=== PATIENT | male | born 1980 | race Hispanic/Latino ===

== ENCOUNTER 2017-02-17 09:01 | Emergency (ER) | payer OTHER, BC ==
[2017-02-17 09:02] VITALS: BMI 32.3
[2017-02-17 09:14] VITALS: RESP 18; TEMP 98.4
--- NOTE | 2017-02-17 10:30 | ED PDOC ---
Arrival/HPI - General Chief Complaint: Upper Extremity Problem/Injury Time Seen by Provider: 02/17/17 09:25 Historian: Patient - History of Present Illness Narrative History of Present Illness (Text): 02/17/17 10:24 36-year-old male presents today with left arm pain status post injury yesterday. 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 He denies numbness weakness or tingling in the family. No medications have been taken for pain at home. Patient describes the pain as a sharp stabbing pain worse with movement. Time/Duration: Other (1 day) Symptom Onset: Gradual Symptom Course: Worsening Quality: Aching, Stabbing Severity Level: 7 Activities at Onset: Other (training/wrestling) Past Medical History - Provider Review Nursing Documentation Reviewed: Yes - Travel History Have you recently traveled outside [place] w/in the past 3 mons?: No - Infectious Disease Hx of Infectious Diseases: None - Tetanus Immunization Tetanus Immunization: Unknown - Cardiac Hx Hypertension: Yes - Pulmonary Hx Respiratory Disorders: No - Neurological Hx Neurological Disorder: No - HEENT Hx HEENT Disorder: No - Renal Hx Renal Disorder: No - Endocrine/Metabolic Hx Endocrine Disorders: No - Hematological/Oncological Hx Blood Disorders: No - Integumentary Hx Dermatological Disorder: No - Musculoskeletal/Rheumatological Hx Musculoskeletal Disorders: No - Gastrointestinal Hx Gastrointestinal Disorders: No - Genitourinary/Gynecological Hx Genitourinary Disorders: No - Psychiatric Hx Psychophysiologic Disorder: No Hx Substance Use: No - Anesthesia Hx Anesthesia: Yes Hx Anesthesia Reactions: No Hx Malignant Hyperthermia: No Family/Social History - Physician Review Nursing Documentation Reviewed: Yes Family/Social History: Unknown Family HX Smoking Status: Never Smoked Hx Alcohol Use: Yes Hx Substance Use: No Allergies/Home Meds Allergies/Adverse Reactions: Allergies No Known Allergies Allergy (Verified 02/17/17 09:14) Review of Systems - Review of Systems Constitutional: absent: Fatigue, Fevers Respiratory: absent: SOB, Cough Cardiovascular: absent: Chest Pain, Palpitations Gastrointestinal: absent: Abdominal Pain, Nausea, Vomiting Genitourinary Male: absent: Dysuria, Frequency, Hematuria Musculoskeletal: Arthralgias. absent: Back Pain, Neck Pain Skin: absent: Rash, Pruritis Physical Exam Vital Signs Reviewed: Yes Vital Signs Temp Pulse Resp BP Pulse Ox 02/17/17 11:00 76 18 157/94 H 97 02/17/17 09:04 98.4 F 80 18 159/105 H 100 Temperature: Afebrile Blood Pressure: Hypertensive Pulse: Regular Respiratory Rate: Normal Appearance: Positive for: Well-Appearing, Non-Toxic, Comfortable Pain Distress: None Mental Status: Positive for: Alert and Oriented X 3 - Systems Exam Head: Present: Atraumatic Respiratory/Chest: Present: Clear to Auscultation Cardiovascular: Present: Regular Rate and Rhythm Upper Extremity: Present: NORMAL PULSES, Tenderness (left arm; + ttp over elbow , proximal forearm and distal radius; decreased rom of elbow due to pain; sensation and distal pulses intact. cap refill <2. no muscle buldge noted. no deformity ), Neurovascularly Intact, Capillary Refill < 2s. No: Normal ROM, Swelling, Erythema, Deformity Neurological: Present: GCS=15 Skin: Present: Warm, Dry, Normal Color. No: Rashes Psychiatric: Present: Alert, Oriented x 3 Medical Decision Making ED Course and Treatment: 02/17/17 10:27 Patient nontoxic well-appearing in no distress with stable vital signs X-rays of the left forearm, elbow and humerus; no fracture toradol IM gail wrap applied. this is a work related injury; pt states he is to f/u with dr. odalis mullen. i spoke with dr. 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 I discussed all results with patient advised to followup with the orthopedist for the next 2 days. Return if symptoms worsen persist or new symptoms develop Impression: arm pain Motrin every 6 hours as needed for pain Flexeril; 1 tablet every 8 hours as needed for muscle spasms;may cause drowsiness. Rest, ice, compression, elevation Followup with the orthopedist within the next 2 days Followup with primary care physician within the next 2 days Return if any other concerning symptoms develop - RAD Interpretation Radiology Orders: 02/17/17 09:17 ELBOW LEFT 3 VIEWS ROUTINE [RAD] Stat FOREARM LEFT [RAD] Stat 02/17/17 09:19 HUMERUS LEFT [RAD] Stat - Medication Orders Current Medication Orders: Discontinued Medications Ketorolac Tromethamine (Toradol) 60 mg IM STAT STA Stop: 02/17/17 09:26 Last Admin: 02/17/17 09:53 Dose: 60 mg Disposition/Present on Arrival - Present on Arrival Any Indicators Present on Arrival: No History of DVT/PE: No History of Uncontrolled Diabetes: No Urinary Catheter: No History of Decub. Ulcer: No History Surgical Site Infection Following: None - Disposition Have Diagnosis and Disposition been Completed?: Yes Diagnosis: Arm pain Disposition: HOME/ ROUTINE Disposition Time: 11:02 Patient Plan: Discharge Condition: GOOD Discharge Instructions (ExitCare): Arm Pain (ED) Additional Instructions: Motrin every 6 hours as needed for pain Flexeril; 1 tablet every 8 hours as needed for muscle spasms;may cause drowsiness. Rest, ice, compression, elevation Followup with the orthopedist within the next 2 days Followup with primary care physician within the next 2 days Return if any other concerning symptoms develop Prescriptions: Cyclobenzaprine [Cyclobenzaprine HCl] 10 mg PO Q8 #10 tab Ibuprofen [Motrin] 600 mg PO Q6H PRN #20 tab PRN Reason: pain/fever reduction Referrals: Sandoval Mercado MD [Primary Care Provider] - Follow up with primary Sandoval Pepe DO [Staff Provider] - Follow up with primary Forms: WORK NOTE
--- NOTE | 2017-02-17 10:50 | RAD ---
PROCEDURE: Radiographs of the left humerus. HISTORY: pain COMPARISON: None. FINDINGS: BONES: Normal. No fracture or focal lesion. SOFT TISSUES: Normal. OTHER FINDINGS: None. IMPRESSION: Normal radiographs of left humerus.
--- NOTE | 2017-02-17 10:51 | RAD ---
PROCEDURE: Radiographs of the Left Forearm HISTORY: pain COMPARISON: None available. TECHNIQUE: Frontal and lateral views obtained. FINDINGS: BONES: No fracture or destructive lesion. JOINT SPACES: Unremarkable. OTHER FINDINGS: None. IMPRESSION: Unremarkable radiographs of the left forearm.
--- NOTE | 2017-02-17 10:52 | RAD ---
PROCEDURE: Radiographs of the left elbow. HISTORY: Pain COMPARISON: No prior. FINDINGS: BONES: Normal. No fracture. JOINTS: Normal. No osteoarthritis. SOFT TISSUES: Normal. JOINT EFFUSION: None. OTHER FINDINGS: None IMPRESSION: Unremarkable radiographs of the left elbow.
[2017-02-17 11:00] VITALS: BP 157/94; PULSE 76; O2SAT 97
== END 2017-02-17 11:23 | disposition home or self-care (01) ==
LOC: ED 09:01
DX: M79.602 Pain in left arm (principal); I10 Essential (primary) hypertension
CPT/HCPCS: 73060; 73080; 73090; 96372; 99284; J1885

== ENCOUNTER 2017-02-22 12:35 | Day surgery (SDC) | payer OTHER ==
[2017-02-21 14:39] VITALS: BMI 31.4
[2017-02-22 13:09] VITALS: TEMP 98.2
[2017-02-22] MEDS ORDERED: Bupivacaine 0.5% Inj(30mL) ONE (14:57)
[2017-02-22] MEDS ORDERED: Midazolam 2 MG/2 ML VIAL ONE (16:00)
[2017-02-22] MEDS ORDERED: Sevoflurane - Inhalation Anesthetic Liq (250 ml) ONE (16:29)
[2017-02-22] MEDS ORDERED: Propofol 10 mg/ml Inj (20 ML) ONE (16:57)
[2017-02-22] MEDS ORDERED: Rocuronium 10 mg/ml (5 ml) ONE (16:58)
[2017-02-22] MEDS ORDERED: Neostigmine Methylsulfate 3mg/3ml Syringe IV ONE (17:06)
[2017-02-22] MEDS ORDERED: Sodium Chloride 0.9% 1,000 ML IV SCH (17:45)
[2017-02-22] MEDS ORDERED: HYDROmorphone 1 mg/ml ISec ONE ×2 (18:08→18:35)
[2017-02-22] MEDS: HYDROmorphone 1 mg/ml ISec IVP PRN ×2 (18:10→18:21)
[2017-02-22 18:19] VITALS: RESP 16
[2017-02-22] MEDS ORDERED: Oxycodone/Acetaminophen 5/325 mg Tab PO PRN (18:26)
[2017-02-22] MEDS ORDERED: HYDROmorphone 1 mg/ml ISec IVP ONE (18:35)
[2017-02-22 18:40] VITALS: O2SAT 100
[2017-02-22] MEDS ORDERED: Oxycodone/Acetaminophen 5/325 mg Tab ONE (19:03)
[2017-02-22 19:34] VITALS: BP 148/90; PULSE 73
--- NOTE | 2017-02-22 20:04 | OP ---
PROCEDURE DATE: 02/22/2017 PREOPERATIVE DIAGNOSIS: Left distal biceps rupture. POSTOPERATIVE DIAGNOSIS: Left distal biceps rupture. PROCEDURE: Left open distal biceps tendon repair. SURGEON: Tripp Richardson MD ANESTHESIA: General. COMPLICATIONS: None. ESTIMATED BLOOD LOSS: 5 mL. TOURNIQUET TIME: 77 minutes at 250 mmHg. INDICATIONS FOR PROCEDURE: This is a 36-year-old gentleman who was injured while at work, sustaining a left elbow injury. Clinical examination was consistent with pain and ecchymosis along the antecub ital region of the left elbow, significant weakness with forearm supination. MRI examination was con sistent with a full-thickness rupture of distal biceps tendon. Recommendations were for open repair. The risks, benefits, and alternatives of procedure were discussed with the patient and informed con sent was obtained. OPERATIVE PROCEDURE: After surgical site was found and verified in preoperative holding area, the pa tient was taken to the operating room and placed supine on the operating room table. After administr ation of general anesthesia, patient received 2 grams of Ancef IV. Tourniquet was placed about the l eft arm. Care was taken to make sure all bony prominences and nerves were well padded and protected and the left upper extremity was prepped and draped in usual sterile fashion. The bony landmarks wer e identified about the left proximal forearm and approximately a 4 cm longitudinal incision was cente red over the radial tuberosity. Soft tissues were dissected bluntly and down to the biceps tendon. There was fluid noted around the biceps tendon and using a curved Katya clamp, the ruptured end of th e biceps tendon could be easily delivered out of the wound. At this point, the free edge of the tend on was debrided and an Arthrex FiberWire was passed in a running fashion from proximal to distal. Th e ends of the suture were then inserted into an Arthrex cortical button. Then at this point, our att ention was directed to the wound. With the arm in full supination, soft tissues were dissected blunt ly down to the radial tuberosity. This was confirmed using the C-arm image intensifier. At this poi nt, a guidepin was inserted bicortically into the radial tuberosity. Next, using the appropriate siz e reamer, our docking hole for our tendon was drilled. Next, the button was loaded on the ccnp a nd the button was inserted bicortically through the hole in the radial tuberosity and deployed on the far cortex of the radius. This was confirmed using the C-arm. Using the sutures, the tendon was th en docked into the hole. The arm was held in about 35 degrees of flexion while this was done. At th is point, using the sutures, the sutures were then passed through one end and the suture was passed t hrough the tendon and then tied. Finally, repair was supplemented with a 7.5 mm bioabsorbable screw. Final images were taken confirming good position of the button. At this point, the wound was copiou sly irrigated and closed in a layered fashion. A sterile dressing was applied and a posterior splint was placed with the arm in approximately 50 degrees of flexion. The patient was awakened from the p rocedure, taken to recovery room in stable condition. Tripp Richardson MD cc: [id number] TT: 02/22/2017 20:03:50 sandra
--- NOTE | 2017-02-23 15:37 | RAD ---
PROCEDURE: Fluoroscopy up to 1 hour HISTORY: REPAIR DISTAL BICEP TENDON COMPARISON: TECHNIQUE: Fluoroscopy was provided in the operating room. 48 seconds of fluoroscopy time was utilized. Six images were submitted. A small metallic orthopedic device is seen in the region of the attachment of the biceps tendon on the radial tuberosity FINDINGS: As above IMPRESSION: As above
== END 2017-02-22 22:56 | disposition home or self-care (01) ==
LOC: SDS 12:35 → 5RNO 19:47 → SDS 22:56
PROVIDERS: ATTEND Orthopaedic Surgery
DX: S46.212A Strain of muscle, fascia and tendon of other parts of biceps, left arm, initial encounter (principal); X58.XXXA Exposure to other specified factors, initial encounter; Y93.9 Activity, unspecified; Y92.59 Other trade areas as the place of occurrence of the external cause; Y99.0 Civilian activity done for income or pay
CPT/HCPCS: 24341; 76000; J0690; J1170; J2175; J2250; J2405; J2704; J2710; J2765; J3010; J7040; J7120